=== PATIENT | male | born 1985 | race Caucasian/White ===

== ENCOUNTER 2020-09-04 16:39 | Outpatient (CLI) | payer OTHER, SELFPAY | END 2020-09-04 16:40 | disposition home or self-care (01) | LOC: ANHCOVIDVC 16:39 | PROVIDERS: PCP Nurse Practitioner Family | DX: Z23 Encounter for immunization (principal) | CPT/HCPCS: 0001A; 91300 ==

== ENCOUNTER 2020-09-25 16:24 | Outpatient (CLI) | payer OTHER, SELFPAY | END 2020-09-25 16:25 | disposition home or self-care (01) | LOC: ANHCOVIDVC 16:24 | PROVIDERS: PCP Nurse Practitioner Family | DX: Z23 Encounter for immunization (principal) | CPT/HCPCS: 0002A; 91300 ==